=== PATIENT | female | born 1990 | race Caucasian/White ===

== ENCOUNTER → 2019-11-11 | Outpatient (CLI) | payer BC | END | disposition home or self-care (01) | LOC: LABWHC1 10:38 | PROVIDERS: ATTEND Obstetrics & Gynecology | DX: Z34.90 Encounter for supervision of normal pregnancy, unspecified, unspecified trimester (principal) | CPT/HCPCS: 36415; 84144; 84702 ==

== ENCOUNTER → 2019-11-13 | Outpatient (CLI) | payer BC | END | disposition home or self-care (01) | LOC: LABWHC1 10:38 | PROVIDERS: ATTEND Obstetrics & Gynecology | DX: Z34.90 Encounter for supervision of normal pregnancy, unspecified, unspecified trimester (principal); Z3A.00 Weeks of gestation of pregnancy not specified | CPT/HCPCS: 36415; 84702 ==

== ENCOUNTER → 2019-11-16 | Outpatient (CLI) | payer BC ==
[~2019-11-16] MED LIST: METHOTREXATE SODIUM (PF) 25 MG/ML 2 ML VIAL IM ONE; Rhogam IMMUNE GLOBULIN 1,500 UNIT/1 ML IM ONE
[2019-11-16 15:34] VITALS: BP 128/77; PULSE 65; RESP 16; TEMP 98.1
[2019-11-16 16:00] LABS: Basophils # (A) 0.1 k/uL (0-0.2); Basophils % (A) 1 %; Eosinophils # (A) 0.1 k/uL (0-0.7); Eosinophils % (A) 1 %; HCT 41.8 % (34.0-46.0); HGB 13.4 gm/dL (11.4-16.0); Lymphocytes # (A) 1.9 k/uL (1.0-4.8); Lymphocytes % (A) 22 %; MCH 28.2 pg (25.0-35.0); MCHC 32.1 g/dL (31.0-37.0); MCV 87.8 fL (80.0-100.0); Mean Platelet Volume 7.2; Monocytes # (A) 0.3 k/uL (0-1.0); Monocytes % (A) 4 %; Neutrophils # (A) 6.3 k/uL (1.3-7.7); Neutrophils % (A) 72 %; Platelet Count 341 k/uL (150-450); RBC 4.76 m/uL (3.80-5.40); RDW 13.8 % (11.5-15.5); WBC 8.8 k/uL (3.8-10.6)
[2019-11-16 16:12] LABS: ALT 23 U/L (4-34); AST 27 U/L (14-36); African American GFR (CKD) >90 (>60 ml/min/1.73 sqM); Blood Urea Nitrogen 9 mg/dL (7-17); Non-African American GFR(CKD) >90 (>60 ml/min/1.73 sqM)
== END | disposition home or self-care (01) ==
LOC: PROCWHC3 15:05
PROVIDERS: ATTEND Obstetrics & Gynecology
DX: O00.109 Unspecified tubal pregnancy without intrauterine pregnancy (principal); Z3A.00 Weeks of gestation of pregnancy not specified
CPT/HCPCS: 86900; 86901; 82565; 84450; 84460; 84520; 85025; 86850; 84702; 96372; 36415; 96402; J2791; J9260

== ENCOUNTER → 2019-11-19 | Outpatient (CLI) | payer BC ==
[2019-11-19 14:20] LABS: HCT 37.6 % (34.0-46.0); HGB 12.2 gm/dL (11.4-16.0); MCH 28.6 pg (25.0-35.0); MCHC 32.5 g/dL (31.0-37.0); Mean Platelet Volume 7.5; Platelet Count 279 k/uL (150-450); RBC 4.27 m/uL (3.80-5.40); RDW 13.5 % (11.5-15.5)
== END | disposition home or self-care (01) ==
LOC: LABWHC1 13:34
PROVIDERS: ATTEND Obstetrics & Gynecology
DX: O00.109 Unspecified tubal pregnancy without intrauterine pregnancy (principal)
CPT/HCPCS: 36415; 84702; 85027

== ENCOUNTER → 2020-03-07 | Outpatient (CLI) | payer BC ==
--- NOTE | 2020-03-07 15:02 | FL ---
EXAMINATION TYPE: FL hysterosalpingography DATE OF EXAM: 03/07/2020 COMPARISON: No prior imaging at this institution FINDINGS/PROCEDURE: 11 images were obtained and 37 seconds of fluoroscopy was utilized. Informed consent was obtained and all the patient's questions were answered. Patient's last menstrual period was 03/03/2020 with no subsequent intercourse. A speculum was introduced and the external cervi bertha os was localize. The external cervical os was cleansed and a Betadine solution on 3 occasions. Hysterosalpingography catheter was introduced into the uterus and balloon insufflation device deploye d. Approximately 6 cc of nonionic contrast was injected in a retrograde manner. The uterus has a normal size shape and appearance. No persistent uterine filling defects are seen. Both fallopian tubes fill with contrast normally. There is delayed spill of contrast into the perito dov cavity on the right however eventual spill was seen. IMPRESSION: Fallopian tubes appear patent bilaterally with delayed, but eventual, spill on the right in comparison to the left.
== END | disposition home or self-care (01) ==
LOC: RADUSWWP 13:32
PROVIDERS: ATTEND Obstetrics & Gynecology
DX: N80.9 Endometriosis, unspecified (principal)
CPT/HCPCS: 58340; 74740

== ENCOUNTER 2021-10-04 16:30 | Outpatient (CLI) | payer BC ==
[2021-10-04] MEDS ORDERED: BETAMET ACET-BETAMETH SOD PHOS 6 MG/ML MDV IM ONE (17:00)
== END 2021-10-04 16:51 | disposition home or self-care (01) ==
LOC: FBPOP 16:30
PROVIDERS: ATTEND Obstetrics & Gynecology
DX: O24.419 Gestational diabetes mellitus in pregnancy, unspecified control (principal); O32.1XX0 Maternal care for breech presentation, not applicable or unspecified; O40.9XX0 Polyhydramnios, unspecified trimester, not applicable or unspecified; Z3A.00 Weeks of gestation of pregnancy not specified
CPT/HCPCS: 96372; J0702

== ENCOUNTER 2021-10-29 10:50 | Inpatient (IN) | payer BC ==
[2021-10-29] MEDS ORDERED: LACTATED RINGERS 1,000 ML IV ONE (11:48)
[2021-10-29] MEDS ORDERED: CITRIC ACID-SODIUM CITRATE 15 ML CUP PO ONE (11:48)
[2021-10-29 12:02] LABS: Anisocytosis Slight; Basophils % (A) 0 %; Eosinophils % (A) 0 %; HCT 38.1 % (34.0-46.0); HGB 12.2 gm/dL (11.4-16.0); Lymphocytes # (A) 1.2 k/uL (1.0-4.8); Lymphocytes % (A) 11 %; MCH 27.9 pg (25.0-35.0); MCV 87.3 fL (80.0-100.0); Mean Platelet Volume 8.6; Monocytes # (A) 0.4 k/uL (0-1.0); Monocytes % (A) 4 %; Neutrophils # (A) 8.5 k/uL (1.3-7.7); Neutrophils % (A) 82 %; Platelet Count 278 k/uL (150-450); RBC 4.37 m/uL (3.80-5.40); RDW 16.5 % (11.5-15.5); WBC 10.3 k/uL (3.8-10.6)
--- NOTE | 2021-10-29 12:26 | P.HPOB ---
History of Present Illness H&P Date: 10/29/21 Chief Complaint: Spontaneous rupture of membranes at 37-2/7 weeks' This is a 31-year-old 2 para 0010 woman with an estimated due date of 11/13/2021 based on first trimester ultrasound. She presents at 37-2/7 weeks' gestation with increasing contractions and leakage of fluids starting at 2 AM. Rupture of membranes is confirmed on evaluation. She is 3+ centimeters dilated and krystle every 3-4 minutes. is, located by known breech presentation with a planned primary section at 39 weeks. Bedside ultrasound confirms breech presentation. The patient's has otherwise been complicated by gestational diabetes and the polyhydramnios. She has not required insulin or other treatment for her blood sugars. She also received betamethasone at 34 weeks for possible labor when she is found to be 1 cm dilated. Laboratory data: Blood type O-, antibody screen negative, RhoGAM received at 29 weeks. Rubella immune, VDRL nonreactive, hepatitis B surface antigen negative, HIV negative, gonorrhea and clinic cultures negative, glucose tolerance testing abnormal, positive group B strep bacteriuria in the first trimester with ne gative rectovaginal cultures in the third trimester. Review of Systems All systems: negative Past Medical History Additional Past Medical History / Comment(s): Gestational diabetes History of Any Multi-Drug Resistant Organisms: None Reported Past Psychological History: No Psychological Hx Reported Smoking Status: Never smoker Past Alcohol Use History: None Reported Past Drug Use History: None Reported Medications and Allergies Home Medications Medication Instructions Recorded Confirmed Type No Known Home Medications 11/16/19 10/03/21 History Allergies Allergy/AdvReac Type Severity Reaction Status Date / Time No Known Allergies Allergy Verified 10/04/21 16:40 Exam Intake and Output 10/28/21 10/29/21 10/29/21 22:59 06:59 14:59 Other: Weight 109.769 kg This is a comfortable appearing female who is visibly gravid. Fundal height greater than stated gestational age. Bedside ultrasound reveals in the complete breech presentation with head to the maternal right upper abdomen spine to the left. On pelvic exam she is 3 cm dilated, 90% effaced and no presenting part. heart tones are category 1 and she is krystle every 2-4 minutes. Results Result Diagrams: 10/29/21 11:53 Abnormal Lab Results - Last 24 Hours (Table) 10/29/21 Range/Units 11:53 RDW 16.5 H (11.5-15.5) % Neutrophils # 8.5 H (1.3-7.7) k/uL Assessment and Plan (1) 37 weeks gestation of Current Visit: Yes Status: Acute Code(s): Z3A.37 - 37 WEEKS GESTATION OF SNOMED Code(s): 33105551 (2) Breech presentation Current Visit: Yes Status: Acute Code(s): O32.1XX0 - MATERNAL CARE FOR BREECH PRESENTATION, UNSP SNOMED Code(s): 7835353 (3) Gestational diabetes Current Visit: Yes Status: Acute Code(s): O24.419 - GESTATIONAL DIABETES MELLITUS IN , UNS CONTROL SNOMED Code(s): 77336627 (4) Rh negative, maternal Current Visit: Yes Status: Acute Code(s): O26.899 - OTH RELATED CONDITIONS, UNSPECIFIED TRIMESTER; Z67.91 - UNSPECIFIED BLOOD TYPE, RH NEGATIVE SNOMED Code(s): 623392777 (5) Spontaneous onset of labor Current Visit: Yes Status: Acute Code(s): PDW3690 - SNOMED Code(s): 85348724 (6) Spontaneous rupture of membranes Current Visit: Yes Status: Acute Code(s): QGS4517 - SNOMED Code(s): 410539108 Plan: 31-year-old 2 para 0010 woman admitted with spontaneous rupture of membranes and early active labor, breech presentation. Plan is for primary low transverse section. The procedure was reviewed with the patient and her including risks: Bleeding, transfusion, infection, damage to bowel, bladder, ureters and/or other maternal and/or infant structures. Implications for future pregnancies. I also discussed the risk of vaginal breech delivery and the indication for section. All questions were answered. The anesthesiologist have been notified.
[2021-10-29] MEDS ORDERED: KETOROLAC 15 MG/ML 1 ML VIAL ONE (12:42)
[2021-10-29] MEDS ORDERED: ONDANSETRON 4 MG/2 ML VIAL ONE (12:42)
[2021-10-29] MEDS ORDERED: MORPHINE SULFATE (PF) 0.3 MG/0.3 ML SYR ONE (12:42)
[2021-10-29] MEDS ORDERED: NALBUPHINE 10 MG/ML (1 ML AMP) ONE (12:42)
[2021-10-29] MEDS ORDERED: HYDROmorphone (PF) 10 MG/ML VIAL ONE (12:42)
[2021-10-29] MEDS ORDERED: ONDANSETRON 4 MG/2 ML VIAL IVP PRN ×2 (13:13→13:38)
[2021-10-29] MEDS ORDERED: NALOXONE 0.4 MG/ML 1 ML VIAL IV PRN ×2 (13:13→13:38)
[2021-10-29] MEDS ORDERED: MORPHINE SULFATE 2 MG/ML SYRINGE IVP PRN (13:13)
[2021-10-29] MEDS ORDERED: diphenhydrAMINE 50 MG/ML 1 ML VIAL IVP PRN ×3 (13:13→13:38)
[2021-10-29] MEDS ORDERED: HYDROmorphone 1 MG/ML 1 ML SYRINGE IVP PRN (13:38)
[2021-10-29] MEDS ORDERED: diphenhydrAMINE 50 MG CAP PO PRN (13:38)
[2021-10-29] MEDS ORDERED: SIMETHICONE 80 MG CHEWABLE PO PRN (13:38)
[2021-10-29] MEDS ORDERED: METOCLOPRAMIDE 5 MG/ML 2 ML VIAL IVP PRN (13:38)
[2021-10-29] MEDS ORDERED: ZOLPIDEM 5 MG TAB PO PRN (13:38)
[2021-10-29] MEDS ORDERED: diphenhydrAMINE 25 MG CAP PO PRN (13:38)
--- NOTE | 2021-10-29 13:38 | P.OP ---
Date of Procedure: 10/29/21 Preoperative Diagnosis: Intrauterine at 37-6/7 weeks Spontaneous rupture of membranes Spontaneous onset of labor Breech presentation Gestational diabetes Rh- Postoperative Diagnosis: Same Procedure(s) Performed: Primary low transverse section Surgeon: Hali Araya .Net Programmer #1: Julissa Joshi Estimated Blood Loss (ml): 550 IV fluids (ml): 400 Urine output (ml): 200 Pathology: none sent Condition: stable Disposition: floor Indications for Procedure: Spontaneous onset of labor and rupture of membranes at 37-6/7 weeks' gestation, breech presentation Operative Findings: Female in a complex breech presentation with "jackknife" position with right leg complete breech left leg georges breech. Weight 8 lbs. 15 oz., 4050 g. Intact but calcified-appearing placenta. Normal-appearing bilateral fallopian tubes, and ovaries. Normal-appearing uterus. Description of Procedure: After the patient was counseled she was taken to the operating room where spinal anesthetic was administered without incident. Appropriate timeout procedure was undertaken. The patient was positioned, prepped and draped in the dorsal supine position with a Vargas catheter in place. After anesthetic was confirmed adequate a low transverse skin incision was made and carried down to the underlying fascia sharply and with the electrocautery. The fascia was incised in the midline and extended bilaterally with Reyez scissors. The inferior and superior aspects of the fascial incision were grasped, elevated and the underlying rectus muscles dissected off sharply. Hemostats were utilized to the bluntly separate the rectus muscles in the midline, tented up the peritoneum and the peritoneum was entered sharply. The peritoneal incision was extended inferiorly and superiorly with good visualization of the bladder. The bladder blade was placed. Vesicouterine peritoneum was identified, tented up and entered sharply. The bladder flap was created both sharply and digitally. The bladder blade was replaced. A low transverse uterine incision was made and carried down to the underlying membrane sharply. Membranes were ruptured and copious clear fluid was noted. The uterine incision was extended bluntly. The was noted to be in a complex breech presentation with the back to the maternal left and the left leg extended straight up and the right leg in the pelvis. With manipulation the left leg was drawn down and delivered facilitating rotation and delivery of the right leg from the incision the infant was then delivered to the level of the scapula. Anterior shoulder was delivered and with rotation posterior shoulder was delivered. Head was flexed and delivered from the incision. The nose and mouth were bulb suctioned and the cord was clamped and cut. The infant was taken to the warmer where Apgars were 9 at 1 minute and 9 at 5 minutes. Somewhat piecemeal placenta was removed and noted to be intact. The uterus was exteriorized and cleared of all clot and debris. The uterine incision was terminated with Mcdaniel's. The incision was closed in a running locked fashion with 0 Vicryl suture followed by second imbricating layer of the same. Additional [id number] suture was placed in the midline for hemostasis which was then achieved. The uterus was returned to the abdomen and the gutters were cleared of all clot and debris. The uterine incision was reinspected and noted to be hemostatic. The fascial edges and peritoneal edges and rectus muscles were all inspected and noted to be hemostatic. The peritoneum was reapproximated in the midline. The fascia was closed in a running fashion with 0 Vicryl suture. The subcuticular tissue was copiously suction irrigated and reapproximated with 3-0 chromic suture. The skin was then closed in a subcutaneous fashion with 4-0 Vicryl suture. All counts reported to me as correct by the operating room staff and the patient did receive antibiotics preoperatively and Pitocin following delivery of the placenta. She was transported to recovery room in good condition.
[2021-10-29] MEDS ORDERED: OXYTOCIN 30 UNITS/500 ML NS 30 UNIT in SALINE 1 500ML.BAG IV SCH (13:45)
[2021-10-29] MEDS: LACTATED RINGERS 1,000 ML IV SCH ×2 (17:08→21:46)
[2021-10-29] MEDS: ACETAMINOPHEN TAB 500 MG TAB PO SCH ×2 (21:45→23:17)
[2021-10-29] MEDS: IBUPROFEN 600 MG TAB PO SCH ×2 (21:46→22:21)
[2021-10-29] MEDS: SENNOSIDES-DOCUSATE SODIUM 1 EACH TAB PO SCH (22:22)
[2021-10-30] MEDS: IBUPROFEN IV 800 MG in SODIUM CHLORIDE 0.9% 250 ML IV SCH ×3 (01:54→19:36)
[2021-10-30] MEDS: ACETAMINOPHEN TAB 500 MG TAB PO SCH ×3 (05:56→20:22)
[2021-10-30] MEDS: LACTATED RINGERS 1,000 ML IV SCH ×2 (05:57→19:36)
[2021-10-30] MEDS: IBUPROFEN 600 MG TAB PO SCH ×2 (05:58→14:27)
--- NOTE | 2021-10-30 07:09 | P.PN ---
Progress Note - Text Date: 10/30/2021 Time: 07:03 The patient is status post section Vital signs stable VAS: 0-10 Patient has no complaints of pain. The patient incurred some minimal itching yesterday, this itching is now subsiding. Pain meds to be managed by service.
--- NOTE | 2021-10-30 07:54 | P.PN ---
Subjective Progress Note Date: 10/30/21 Principal diagnosis: Doing well postoperative day #1 Slept well. Minimal pain. Positive flatus. No complaints. Objective - Vital Signs Vital signs: Vital Signs Temp 98.6 F 10/30/21 03:34 Pulse 101 H 10/30/21 03:34 Resp 18 10/30/21 03:34 BP 121/55 10/29/21 23:35 Pulse Ox 100 10/29/21 22:00 Intake & Output 10/29/21 10/30/21 10/30/21 18:59 06:59 18:59 Output Total 150 450 Balance -150 -450 Weight 109.769 kg Output: Urine 150 450 Other: # Bowel Movements 0 - Constitutional General appearance: Present: average body habitus, cooperative - EENT Eyes: Present: PERRLA ENT: Present: hearing grossly normal - Respiratory Respiratory: bilateral: CTA - Cardiovascular Rhythm: regular - Gastrointestinal Gastrointestinal Comment(s): Incision clean and dry, intact, Steri-Strips applied. Fundus firm, mobile, symmetric, 18 week size General gastrointestinal: Present: normal bowel sounds - Integumentary Integumentary: Present: normal - Neurologic Neurologic: Present: CNII-XII intact - Musculoskeletal Musculoskeletal: Present: gait normal, strength equal bilaterally - Psychiatric Psychiatric: Present: A&O x's 3, appropriate affect, intact judgment & insight - Labs CBC & Chem 7: 10/29/21 11:53 Labs: Abnormal Lab Results - Last 24 Hours (Table) 10/29/21 Range/Units 11:53 RDW 16.5 H (11.5-15.5) % Neutrophils # 8.5 H (1.3-7.7) k/uL Assessment and Plan Assessment: Doing well postoperative day #1 Plan: Continue postoperative care. Advanced diet and activity. Likely discharge home tomorrow. Time with Patient: Less than 30
[2021-10-30] MEDS: SENNOSIDES-DOCUSATE SODIUM 1 EACH TAB PO SCH ×2 (08:23→19:36)
[2021-10-30 09:12] LABS: Anisocytosis Slight; Basophils % (A) 0 %; Eosinophils # (A) 0.1 k/uL (0-0.7); Eosinophils % (A) 1 %; HCT 35.3 % (34.0-46.0); HGB 11.3 gm/dL (11.4-16.0); Hypochromasia Slight; Lymphocytes % (A) 9 %; MCH 28.1 pg (25.0-35.0); MCV 87.8 fL (80.0-100.0); Mean Platelet Volume 8.3; Monocytes # (A) 0.5 k/uL (0-1.0); Monocytes % (A) 4 %; Neutrophils # (A) 8.7 k/uL (1.3-7.7); Neutrophils % (A) 84 %; Platelet Count 233 k/uL (150-450); RBC 4.02 m/uL (3.80-5.40); RDW 16.5 % (11.5-15.5); WBC 10.4 k/uL (3.8-10.6)
[2021-10-31] MEDS: IBUPROFEN 600 MG TAB PO SCH ×5 (00:13→23:43)
[2021-10-31 00:25] VITALS: RESP 16
[2021-10-31] MEDS: ACETAMINOPHEN TAB 500 MG TAB PO SCH ×4 (00:34→21:06)
--- NOTE | 2021-10-31 08:39 | P.DS ---
Providers Date of admission: 10/29/21 11:32 Expected date of discharge: 10/31/21 Attending physician: Socorro New Primary care physician: Stated None Hospital Course: This is a 31-year-old white female 2 para 0010 EDC 11/13/2021 who presented at 37-6/7 weeks with a known breech presentation, and spontaneous amniorrhexis which occurred at home, clear fluid. remarkable for blood type O-, rubella status immune, group B strep cultures negative. Please see dictated history and physical for details. Patient underwent a primary low transverse section for breech presentation, gave to a liveborn female with scores of 9 and 9 at one and 5 minutes respectively. Infant weight 8 lbs. 15 oz. or 4050 g. Estimate a blood loss 550 mL, please see dictated operative note for details. This morning the patient is doing well. She is voiding, ambulate in, passing flatus without difficulty. Vital signs are stable and she is afebrile. Incision is clean and dry, intact, Steri-Strips applied. Breasts are not engorged. Breast-feeding is going well. [place] is doing well, and likely will be discharged home today. Patient is judged to be in very good condition for discharge home. She will follow-up with me in the office in 2 weeks. I have reminded her no intercourse, tampons or douching. She will use [id number] Advil or Aleve, or Motrin as needed for pain. She will call with any fevers shakes or chills, foul smelling or copious lochia, with the passage of large blood clots, with any pain not alleviated by [id number]-fyt-cyyayah products, or indeed with any concerns. [place] will follow-up with registered health nurse as per recommendations. Assessment: Doing well second postoperative day Patient Condition at Discharge: Good Plan - Discharge Summary Discharge Rx Participant: No New Discharge Prescriptions: No Action Pnv,Calcium 72/Iron/Folic Acid [ Plus Tablet] 1 tab PO DAILY Discharge Medication List Pnv,Calcium 72/Iron/Folic Acid [ Plus Tablet] 1 tab PO DAILY 10/29/21 [History] Follow up Appointment(s)/Referral(s): Socorro New MD [STAFF PHYSICIAN] - 2 Weeks Discharge Disposition: HOME SELF-CARE
[2021-10-31] MEDS: SENNOSIDES-DOCUSATE SODIUM 1 EACH TAB PO SCH (08:50)
[2021-10-31 23:47] VITALS: TEMP 97.7
[2021-11-01] MEDS: SENNOSIDES-DOCUSATE SODIUM 1 EACH TAB PO SCH ×2 (04:18→08:56)
[2021-11-01 08:54] VITALS: BP 129/78; PULSE 69
[2021-11-01] MEDS: ACETAMINOPHEN TAB 500 MG TAB PO SCH (09:00)
== END 2021-11-01 14:35 | disposition home or self-care (01) | DRG 788 ==
LOC: FBPOP 10:50 → 4FBP 11:32
PROVIDERS: ADMIT Obstetrics & Gynecology; ATTEND Obstetrics & Gynecology
PROC: 10D00Z1 Extraction of Products of Conception, Low, Open Approach (ICD-10-PCS; principal; 2021-10-29 12:45)
DX: O32.1XX0 Maternal care for breech presentation, not applicable or unspecified (principal); O24.429 Gestational diabetes mellitus in childbirth, unspecified control; O40.3XX0 Polyhydramnios, third trimester, not applicable or unspecified; O26.893 Other specified pregnancy related conditions, third trimester; O99.73 Diseases of the skin and subcutaneous tissue complicating the puerperium; L29.9 Pruritus, unspecified; Z67.41 Type O blood, Rh negative; Z3A.37 37 weeks gestation of pregnancy; Z37.0 Single live birth
CPT/HCPCS: 59025; 84112; 85025; 86850; 86900; 86901; 99213

== ENCOUNTER → 2023-12-10 | Outpatient (CLI) | payer BC ==
--- NOTE | 2023-12-11 15:45 | XR ---
EXAMINATION TYPE: XR elbow limited RT DATE OF EXAM: 12/10/2023 COMPARISON: NONE HISTORY: 33-year-old female contiguous 1 month ago, continued pain, M77.11 LATERAL EPICONDYLITIS, RIG HT ELBOW TECHNIQUE: 2 views FINDINGS: No elbow joint effusion. No acute fracture, subluxation, or dislocation. No discrete osseous abnormal ity is seen. IMPRESSION: No acute osseous abnormality seen.
== END | disposition home or self-care (01) ==
LOC: RADXRMAIN 14:44
PROVIDERS: ATTEND Family Medicine
DX: M77.11 Lateral epicondylitis, right elbow (principal); M25.521 Pain in right elbow

== ENCOUNTER 2025-03-27 17:52 | Emergency (ER) | payer BC ==
--- NOTE | 2025-03-27 18:15 | ED ---
General Adult HPI - General Chief complaint: Dizziness Stated complaint: Light Headed Time Seen by Provider: 03/27/25 18:07 Source: patient, family, RN notes reviewed Mode of arrival: ambulatory Limitations: no limitations - History of Present Illness Initial comments: This is a A1, 34-week , 34-year-old female with history of gest ational DM and DM presenting for dizziness starting at 1000 this morning. Patient states dizziness is constant with associated lightheadedness and headache. Denies fever, chills, chest pain, dyspnea, abdominal pain, vaginal bleeding/discharge, urinary symptoms. Onset/Timin -: days(s) Time: 10:00 Consistency: constant - Related Data Home Medications Medication Instructions Recorded Confirmed Vit No.180/Iron/Folic 1 tab PO DAILY 10/29/21 10/29/21 [ Plus Tablet] Allergies Allergy/AdvReac Type Severity Reaction Status Date / Time No Known Allergies Allergy Verified 10/29/21 13:51 Review of Systems ROS Statement: Those systems with pertinent positive or pertinent negative responses have been documented in the HPI. ROS Other: All systems not noted in ROS Statement are negative. Past Medical History Past Medical History: Diabetes Mellitus Additional Past Medical History / Comment(s): Gestational diabetes History of Any Multi-Drug Resistant Organisms: None Reported Past Surgical History: Appendectomy, Tonsillectomy Past Anesthesia/Blood Transfusion Reactions: No Reported Reaction Past Psychological History: No Psychological Hx Reported Smoking Status: Never smoker Past Alcohol Use History: None Reported Past Drug Use History: None Reported - Past Family History Father History Unknown: Yes General Exam Limitations: no limitations General appearance: alert, in no apparent distress Head exam: Present: atraumatic, normocephalic, normal inspection Eye exam: Present: normal appearance, PERRL, EOMI. Absent: scleral icterus, conjunctival injection, periorbital swelling ENT exam: Present: normal exam, mucous membranes moist, TM's normal bilaterally (Bilateral TMs are pearly without bulging or air-fluid levels) Neck exam: Present: normal inspection. Absent: tenderness, meningismus, lymphadenopathy Respiratory exam: Present: normal lung sounds bilaterally. Absent: respiratory distress, wheezes, rales, rhonchi, stridor, accessory muscle use, decreased breath sounds, prolonged expiratory Cardiovascular Exam: Present: regular rate, normal rhythm, normal heart sounds. Absent: systolic murmur, diastolic murmur, rubs, gallop, clicks GI/Abdominal exam: Present: soft, normal bowel sounds. Absent: distended, tenderness, guarding, rebound, rigid Extremities exam: Present: normal inspection, full ROM, normal capillary refill. Absent: tenderness, pedal edema, joint swelling, calf tenderness Back exam: Present: normal inspection Neurological exam: Present: alert, oriented X3, CN II-XII intact, other ( Cerebellar test normal. Hints exam normal) Psychiatric exam: Present: normal affect, normal mood Skin exam: Present: warm, dry, intact, normal color. Absent: rash Course Vital Signs 03/27/25 03/27/25 03/27/25 17:54 19:48 20:44 Temperature 98 F 98.1 F Pulse Rate 85 85 87 Respiratory 20 18 18 Rate Blood Pressure 124/80 123/70 118/74 O2 Sat by Pulse 97 97 98 Oximetry Medical Decision Making - Medical Decision Making Was pt. sent in by a medical professional or institution (, PA, HORTICULTURAL WORKER, urgent care, hospital, or fdc...) When possible be specific @ -No Did you speak to anyone other than the patient for history (EMS, parent, family, police, friend...)? What history was obtained from this source @ -No Did you review nursing and triage notes (agree or disagree)? Why? @ -I reviewed and agree with nursing and triage notes Were old charts reviewed (outside hosp., previous admission, EMS record, old EKG, old radiological studies, urgent care reports/EKG's, fdc records)? Report findings @ -No old charts were reviewed Differential Diagnosis (chest pain, altered mental status, abdominal pain women, abdominal pain men, vaginal bleeding, weakness, fever, dyspnea, syncope, headache, dizziness, GI bleed, back pain, seizure, CVA, palpatations, mental health, musculoskeletal)? @ -Differential Dizziness: Benign paroxysmal positional Vertigo, Meniere's disease, otitis media, acoustic neuroma, vertebrobasilar insufficiency, cerebellar stroke, encephalitis, hypovolemic, arrhythmia, coronary artery syndrome, anemia, this is not meant to be an all-inclusive list EKG interpreted by me (3pts min.). @ -Sinus rhythm without ST deviation or T wave inversion. Ventricular rate 78 bpm, TORI 161 ms, QRS 88 ms, QTc 417 ms. X-rays interpreted by me (1pt min.). @ -CXR shows no acute cardiopulmonary process CT interpreted by me (1pt min.). @ -None done U/S interpreted by me (1pt. min.). @ -Obstetrics ultrasound shows single live intrauterine gestation of 34 weeks 0 days with 150 bpm. What testing was considered but not performed or refused? (CT, X-rays, U/S, labs)? Why? @ -None What meds were considered but not given or refused? Why? @ -Patient declined p.o. meclizine both in ER and to pharmacy Did you discuss the management of the patient with other professionals (professionals i.e. , PA, HORTICULTURAL WORKER, lab, RT, psych nurse, transition social worker, film color tester, teacher, operations officer, block and case maker)? Give summary @ -No Was smoking cessation discussed for >3mins.? @ -No Was critical care preformed (if so, how long)? @ -No Were there social determinants of health that impacted care today? How? (Homelessness, low income, unemployed, alcoholism, drug addiction, transportation, low edu. Level, literacy, decrease access to med. care, long term, rehab)? @ -No Was there de-escalation of care discussed even if they declined (Discuss DNR or withdrawal of care, Hospice)? DNR status @ -No What co-morbidities impacted this encounter? (DM, HTN, Smoking, COPD, CAD, Cancer, CVA, ARF, Chemo, Hep., AIDS, mental health diagnosis, sleep apnea, morbid obesity)? @ -None Was patient admitted / discharged? Hospital course, mention meds given and route, prescriptions, significant lab abnormalities, going to OR and other pertinent info. @ -Patient provided IV normal saline. Lab work shows hemoglobin 11.8 and quantitative hCG 68928. UA shows mild ketonuria. CXR shows no acute cardiopulmonary process. Obstetrics ultrasound shows single live intrauterine gestation of 34 weeks 0 days with 150 bpm. EKG is unremarkable. Advised to increase intake of clear fluids. Follow-up with PCP/PERSONNEL WORKER regarding ongoing dizziness. Tylenol every 4-6 hours as needed for headache. Discussed patient with Dr. Jim. Undiagnosed new problem with uncertain prognosis? @ -No Drug Therapy requiring intensive monitoring for toxicity (Heparin, Nitro, Insulin, Cardizem)? @ -No Were any procedures done? @ -No Diagnosis/symptom? @ -Dizziness Acute, or Chronic, or Acute on Chronic? @ -Acute Uncomplicated (without systemic symptoms) or Complicated (systemic symptoms)? @ -Complicated Side effects of treatment? @ -No Exacerbation, Progression, or Severe Exacerbation? @ -No Poses a threat to life or bodily function? How? (Chest pain, [place], [place], pneumonia, PE, COPD, DKA, ARF, appy, cholecystitis, CVA, Diverticulitis, Homicidal, Suicidal, threat to staff... and all critical care pts) @ -No - Lab Data Result diagrams: 03/27/25 18:15 03/27/25 18:15 Lab Results 03/27/25 03/27/25 03/27/25 Range/Units 18:15 18:15 18:15 WBC 9.93 (4.50-10.00) 10*3/uL RBC 4.35 (4.10-5.20) 10*6/uL Hgb 11.8 L (12.0-15.0) g/dL Hct 36.7 L (37.2-46.3) % MCV 84.4 (80.0-97.0) fL MCH 27.1 (27.0-32.0) pg MCHC 32.2 (32.0-37.0) g/dL Plt Count 242 (140-440) 10*3/uL MPV 9.9 (9.5-12.2) fL Immature Gran % (Auto) 1.5 % Neutrophils % 73.6 % Lymphocytes % 17.4 % Monocytes % 6.7 % Eosinophils % 0.5 % Basophils % 0.3 % Immature Gran # 0.15 H (0.00-0.04) 10*3/uL Neutrophils # 7.30 (1.80-7.70) 10*3/uL Lymphocytes # 1.73 (0.90-5.00) 10*3/uL Monocytes # 0.67 (0.20-1.00) 10*3/uL Eosinophils # 0.05 (0.04-0.35) 10*3/uL Basophils # 0.03 (0.00-0.10) 10*3/uL Sodium 134 L (137-145) mmol/L Potassium 3.9 (3.5-5.1) mmol/L Chloride 106 (98-107) mmol/L Carbon Dioxide 21 L (22-30) mmol/L Anion Gap 7 mmol/L BUN 7 (7-17) mg/dL Creatinine 0.47 L (0.52-1.04) mg/dL Est GFR (CKD-EPI)AfAm >90 (>60 ml/min/1.73 sqM) Est GFR (CKD-EPI)NonAf >90 (>60 ml/min/1.73 sqM) Glucose 75 (74-99) mg/dL Calcium 9.0 (8.4-10.2) mg/dL Total Bilirubin 0.5 (0.2-1.3) mg/dL AST 25 (14-36) U/L ALT 18 (4-34) U/L Alkaline Phosphatase 98 (38-126) U/L Total Protein 6.2 L (6.3-8.2) g/dL Albumin 3.5 (3.5-5.0) g/dL HCG, Quant 06824.3 mIU/mL Urine Color Light Yellow Urine Appearance Clear (Clear) Urine pH 6.5 (5.0-8.0) Ur Specific [place] 1.017 (1.001-1.035) Urine Protein Negative (Negative) Urine Glucose (UA) Negative (Negative) Urine Ketones 1+ H (Negative) Urine Blood Negative (Negative) Urine Nitrite Negative (Negative) Urine Bilirubin Negative (Negative) Urine Urobilinogen <2.0 (<2.0) mg/dL Ur Leukocyte Esterase Negative (Negative) Blood Type Blood Type Recheck Bld Type Recheck Status 03/27/25 Range/Units 19:00 WBC (4.50-10.00) 10*3/uL RBC (4.10-5.20) 10*6/uL Hgb (12.0-15.0) g/dL Hct (37.2-46.3) % MCV (80.0-97.0) fL MCH (27.0-32.0) pg MCHC (32.0-37.0) g/dL Plt Count (140-440) 10*3/uL MPV (9.5-12.2) fL Immature Gran % (Auto) % Neutrophils % % Lymphocytes % % Monocytes % % Eosinophils % % Basophils % % Immature Gran # (0.00-0.04) 10*3/uL Neutrophils # (1.80-7.70) 10*3/uL Lymphocytes # (0.90-5.00) 10*3/uL Monocytes # (0.20-1.00) 10*3/uL Eosinophils # (0.04-0.35) 10*3/uL Basophils # (0.00-0.10) 10*3/uL Sodium (137-145) mmol/L Potassium (3.5-5.1) mmol/L Chloride (98-107) mmol/L Carbon Dioxide (22-30) mmol/L Anion Gap mmol/L BUN (7-17) mg/dL Creatinine (0.52-1.04) mg/dL Est GFR (CKD-EPI)AfAm (>60 ml/min/1.73 sqM) Est GFR (CKD-EPI)NonAf (>60 ml/min/1.73 sqM) Glucose (74-99) mg/dL Calcium (8.4-10.2) mg/dL Total Bilirubin (0.2-1.3) mg/dL AST (14-36) U/L ALT (4-34) U/L Alkaline Phosphatase (38-126) U/L Total Protein (6.3-8.2) g/dL Albumin (3.5-5.0) g/dL HCG, Quant mIU/mL Urine Color Urine Appearance (Clear) Urine pH (5.0-8.0) Ur Specific [place] (1.001-1.035) Urine Protein (Negative) Urine Glucose (UA) (Negative) Urine Ketones (Negative) Urine Blood (Negative) Urine Nitrite (Negative) Urine Bilirubin (Negative) Urine Urobilinogen (<2.0) mg/dL Ur Leukocyte Esterase (Negative) Blood Type O Negative Blood Type Recheck O Neg Bld Type Recheck Status No Disposition Clinical Impression: Dizziness Disposition: HOME SELF-CARE Instructions (If sedation given, give patient instructions): Dizziness (ED) Is patient prescribed a controlled substance at d/c from ED?: No Referrals: Kamar Alfredo MD [Primary Care Provider] - 1-2 days Time of Disposition: 21:00
--- NOTE | 2025-03-27 18:49 | XR ---
EXAMINATION TYPE: XR chest 2V DATE OF EXAM: 03/27/2025 6:37 PM COMPARISON: None TECHNIQUE: XR chest 2V Frontal and lateral views of the chest. CLINICAL INDICATION:Female, 34 years old with history of Dizziness; FINDINGS: Lungs/Pleura: There is no evidence of pleural effusion, focal consolidation, or pneumothorax. Pulmonary vascularity: Unremarkable. Heart/mediastinum: Cardiomediastinal silhouette is unremarkable. Musculoskeletal: No acute osseous pathology. IMPRESSION: No acute cardiopulmonary disease/process. [facility], , 03/27/2025 6:47 PM
[2025-03-27 18:58] LABS: Appearance,Urine Clear (Clear); Bilirubin,Urine Negative (Negative); Blood,Urine Negative (Negative); Color,Urine Light Yellow; Glucose,Urine (UA) Negative (Negative); Ketones,Urine 1+ (Negative); Leukocyte Esterase,Urine Negative (Negative); Nitrite,Urine Negative (Negative); PH, Urine 6.5 (5.0-8.0); Protein,Urine Negative (Negative); Specific Gravity,Urine 1.017 (1.001-1.035); Urobilinogen,Urine <2.0 mg/dL (<2.0)
[2025-03-27 19:02] LABS: Basophils # (A) 0.03 10*3/uL (0.00-0.10); Basophils % (A) 0.3 %; Eosinophils # (A) 0.05 10*3/uL (0.04-0.35); Eosinophils % (A) 0.5 %; HCT 36.7 % (37.2-46.3); HGB 11.8 g/dL (12.0-15.0); Lymphocytes # (A) 1.73 10*3/uL (0.90-5.00); Lymphocytes % (A) 17.4 %; MCH 27.1 pg (27.0-32.0); MCHC 32.2 g/dL (32.0-37.0); MCV 84.4 fL (80.0-97.0); Mean Platelet Volume 9.9 fL (9.5-12.2); Monocytes # (A) 0.67 10*3/uL (0.20-1.00); Monocytes % (A) 6.7 %; Neutrophils % (A) 73.6 %; Platelet Count 242 10*3/uL (140-440); RBC 4.35 10*6/uL (4.10-5.20); RDW 16.6 % (11.5-14.5); WBC 9.93 10*3/uL (4.50-10.00)
[2025-03-27] MEDS: SODIUM CHLORIDE 0.9% 1,000 ML IV STA (19:06)
[2025-03-27 19:12] LABS: ALT 18 U/L (4-34); AST 25 U/L (14-36); African American GFR (CKD) >90 (>60 ml/min/1.73 sqM); Albumin 3.5 g/dL (3.5-5.0); Alkaline Phosphatase 98 U/L (38-126); Anion Gap 7 mmol/L; Blood Urea Nitrogen 7 mg/dL (7-17); Carbon Dioxide 21 mmol/L (22-30); Chloride 106 mmol/L (98-107); Glucose 75 mg/dL (74-99); Non-African American GFR(CKD) >90 (>60 ml/min/1.73 sqM); Potassium 3.9 mmol/L (3.5-5.1); Sodium 134 mmol/L (137-145); Total Bilirubin 0.5 mg/dL (0.2-1.3); Total Protein 6.2 g/dL (6.3-8.2)
[2025-03-27 19:50] VITALS: RESP 18
--- NOTE | 2025-03-27 20:26 | US ---
EXAMINATION TYPE: US OB limited DATE OF EXAM: 03/27/2025 COMPARISON: NONE CLINICAL INDICATION: Female, 34 years old with history of Dizziness, no ultrasound this ; Boni cornell here for lightheadedness, patient has had care along with US ot office and is schedule d for US in 3 days, no pelvic pain, no bleeding TECHNIQUE:: OBTA FINDINGS: GESTATIONAL AGE / DATING Physician Established: (34 weeks/0 days) EDC: 08/01/2025 No growth performed on today?s study per ordering physician SURVEY PLACENTA: anterofundal PREVIA: no EPIFANIO: 19.5 cm Normal Ultrasound evidence of premature rupture of membranes? no CERVICAL LENGTH (transabdominal: norm > 3.0cm): unable to view due to not fully distended bladder an d shadowing from head PRESENTATION: Vertex LIE: Longitudinal HEART RATE: 150 bpm RHYTHM: Normal IMPRESSION: Single live intrauterine gestation with gestational age of 34 weeks 0 days and estimated due date of 05/08/2025 based on reported LMP. [facility], , 03/27/2025 8:23 PM
[2025-03-27 20:46] VITALS: BP 118/74; PULSE 87; TEMP 98.1
== END 2025-03-27 20:44 | disposition home or self-care (01) ==
LOC: EC 17:52
DX: R42 Dizziness and giddiness (principal)
CPT/HCPCS: 36415; 71046; 76815; 80053; 81003; 84702; 85025; 86900; 86901; 93005; 96360; 99284